=== PATIENT | female | born 1995 | race Caucasian/White ===

== ENCOUNTER 2023-05-11 19:18 | Emergency (ER) | payer OTHER ==
[2023-05-11] MEDS ORDERED: EPINEPHrine 1 MG/ML SDV IM ONE (19:26)
[2023-05-11] MEDS ORDERED: diphenhydrAMINE 50 MG/ML SDV IM ONE (19:26)
[2023-05-11] MEDS ORDERED: methylPREDNISolone Sodium Succinate 125 MG/2 ML SDV IM ONE (19:26)
== END 2023-05-11 21:07 | disposition home or self-care (01) ==
LOC: FB.ED 19:18
DX: T78.1XXA Other adverse food reactions, not elsewhere classified, initial encounter (principal)
CPT/HCPCS: 96372; 99283; J0171; J1200; J2930